=== PATIENT | male | born 1935 | race Caucasian/White ===

== ENCOUNTER 2018-01-13 21:12 | Emergency (ER) | payer MEDICARE ==
[2018-01-13] MEDS ORDERED: NA CHLORIDE 0.9% 1,000 ML ONE ×2 (21:54→23:12)
--- NOTE | 2018-01-13 22:14 | RAD REPORT ---
EXAM DESCRIPTION: CT - CTHCSPWOC - 01/13/2018 9:55 pm CLINICAL HISTORY: Fall, head and neck injury COMPARISON: None. TECHNIQUE: Axial 5 mm thick images of the head were obtained. Axial 2 mm thick images of the cervic al spine were obtained with sagittal and coronal reconstruction images generated and reviewed. All CT scans are performed using dose optimization technique as appropriate and may include automated exposure control or mA/KV adjustment according to patient size. FINDINGS: No intracranial hemorrhage, mass, edema or acute intracranial finding. No suspicion for acute infarct ion. Moderate severity atrophy chronic ischemic changes. Ventricular size is in proportion to volume loss. Mastoid air cells and paranasal sinuses are clear. No globe or orbit abnormality seen. Cervical body height and alignment are normal. No disk space narrowing. No fracture or acute bony abn ormality. No pathologic bone process. Facet joint degenerative changes are present most prominent at C5-6 and C4-5. No paraspinal mass or hematoma. IMPRESSION: Moderate severity atrophy and chronic ischemic change with no acute finding. Multilevel facet joint degenerative change. No fracture or acute cervical spine finding.
--- NOTE | 2018-01-13 22:27 | RAD REPORT ---
EXAM DESCRIPTION: RAD - Chest Single View - 01/13/2018 10:05 pm CLINICAL HISTORY: Fall, syncope, chest pain COMPARISON: None. TECHNIQUE: AP portable chest image was obtained 2153 hours . FINDINGS: No pulmonary contusion, mass or acute lung parenchymal process. No failure or volume overl oad. Pacemaker is in place. Heart and vasculature are normal. No measurable pleural effusion and no p neumothorax. No acute aortic finding. Large hiatal hernia is evident. IMPRESSION: No acute cardiopulmonary process. Large hiatal hernia.
[2018-01-13 22:36] LABS: Absolute Lymphocytes (CBC) 1.4 K/uL (0.7-4.9); Absolute Monocytes 0.6 K/uL (0.1-1.3); Absolute Neutrophil 3.8 K/uL (1.8-8.0); Basophils % 0.7 % (0-1.3); Eosinophils % 2.1 % (0-4.4); Hematocrit 36.1 % (39.6-49.0); MCH 32.8 pg (27.0-35.0); MCV 94.2 fL (80-100); MPV 8.9 fL (7.6-11.3); Monocytes % 10.2 % (3.3-12.3); RBC Red Blood Cell Count 3.83 M/uL (4.33-5.43)
[2018-01-13 22:37] LABS: Protime INR 1.08
[2018-01-13 23:07] LABS: Magnesium 2.2 mg/dL (1.8-2.4); Potassium 3.8 mmol/L (3.5-5.1)
[2018-01-13] MEDS ORDERED: INSULIN -REGULAR HUMAN 50 UNIT/0.5 ML ML ONE (23:12)
--- NOTE | 2018-01-13 23:12 | EDPHYS ---
Physician Documentation [facility] Name: Rafael Stone Age: 82 yrs Sex: Male : 1935 Arrival Date: 01/13/2018 Time: 21:13 Bed 7 Private MD: ED Physician Jaleel Hutton HPI: 01/13 22:07 This 82 yrs old Male presents to ER via EMS with complaints of Fall. jr8 22:07 The patient or guardian reports pain, tenderness. The complaints affect the forehead. jr8 Context of injury: The problem was sustained at home, resulted from a fall. Onset: The symptoms/episode began/occurred acutely, today. Associated signs and symptoms: The patient has no apparent associated signs or symptoms. Severity of symptoms: At their worst the symptoms were mild, in the emergency department the symptoms are unchanged. The patient has experienced similar episodes in the past, a few times. The patient has not recently seen a physician. Family stated that he has had frequent falls. Patient stated that some of them have been from miss stepping or accidental. The one tonight he did not remember. Complains of head and ear pain. Denies any CP, shortness of breath, fevers, fatigue, weakness, dizziness, or visual disturbances . Historical: - Allergies: 21:18 No Known Allergies; bp - Home Meds: 21:20 aspirin 81 mg Oral TbEC 1 tab once daily [Active]; Zetia 10 mg Oral tab 1 tab once bp daily [Active]; glipizide 5 mg Oral tab 1 tab once daily [Active]; lisinopril 10 mg Oral tab 1 tab once daily [Active]; omeprazole 40 mg Oral cpDR 1 cap once daily [Active]; sertraline 50 mg oral tab 1 tab once daily [Active]; atorvastatin 80 mg oral tab 1 tab once daily [Active]; - PMHx: 21:18 Cancer; Hypertension; Diabetes - NIDDM; High Cholesterol; Depression; bp - PSHx: 21:18 PACEMAKER; bp - Immunization history:: Adult Immunizations up to date. - Social history:: Smoking status: Patient/guardian denies using tobacco, Patient uses alcohol, occasionally. - Ebola Screening: : Patient negative for fever greater than or equal to 101.5 degrees Fahrenheit, and additional compatible Ebola Virus Disease symptoms Patient denies exposure to infectious person Patient denies travel to an Ebola-affected area in the 21 days before illness onset No symptoms or risks identified at this time. ROS: 22:07 Eyes: Negative for injury, pain, redness, and discharge, ENT: Negative for injury, jr8 pain, and discharge, Neck: Negative for injury, pain, and swelling, Cardiovascular: Negative for chest pain, palpitations, and edema, Respiratory: Negative for shortness of breath, cough, wheezing, and pleuritic chest pain, Abdomen/GI: Negative for abdominal pain, nausea, vomiting, diarrhea, and constipation, Back: Negative for injury and pain, MS/Extremity: Negative for injury and deformity, Neuro: Negative for headache, weakness, numbness, tingling, and seizure. 22:07 Skin: Positive for abrasion(s), laceration(s), of the face and left ear. Exam: 22:07 Eyes: Pupils equal round and reactive to light, extra-ocular motions intact. Lids and jr8 lashes normal. Conjunctiva and sclera are non-icteric and not injected. Cornea within normal limits. Periorbital areas with no swelling, redness, or edema. ENT: Nares patent. No nasal discharge, no septal abnormalities noted. Tympanic membranes are normal and external auditory canals are clear. Oropharynx with no redness, swelling, or masses, exudates, or evidence of obstruction, uvula midline. Mucous membranes moist. Neck: Trachea midline, no thyromegaly or masses palpated, and no cervical lymphadenopathy. Supple, full range of motion without nuchal rigidity, or vertebral point tenderness. No Meningismus. Chest/axilla: Normal chest wall appearance and motion. Nontender with no deformity. No lesions are appreciated. Cardiovascular: Regular rate and rhythm with a normal S1 and S2. No gallops, murmurs, or rubs. Normal PMI, no JVD. No pulse deficits. Respiratory: Lungs have equal breath sounds bilaterally, clear to auscultation and percussion. No rales, rhonchi or wheezes noted. No increased work of breathing, no retractions or nasal flaring. Abdomen/GI: Soft, non-tender, with normal bowel sounds. No distension or tympany. No guarding or rebound. No evidence of tenderness throughout. Back: No spinal tenderness. No costovertebral tenderness. Full range of motion. Skin: Warm, dry with normal turgor. Normal color with no rashes, no lesions, and no evidence of cellulitis. MS/ Extremity: Pulses equal, no cyanosis. Neurovascular intact. Full, normal range of motion. Neuro: Awake and alert, GCS 15, oriented to person, place, time, and situation. Cranial nerves II-XII grossly intact. Motor strength 5/5 in all extremities. Sensory grossly intact. Cerebellar exam normal. Normal gait. 22:07 Head/face: Noted is Mild superficial tear to left ear with mild bleeding. Small abrasion to forehead . Vital Signs: 21:20 BP 118 / 59; Pulse 64; Resp 13; Temp 98; Pulse Ox 94% ; Weight 86.18 kg; bp 22:32 BP 113 / 63 Supine; Pulse 64; mt 22:32 BP 100 / 55 Sitting; Pulse 65; mt 22:32 BP 97 / 52 Standing; Pulse 68; mt 22:32 BP 97 / 52; Pulse 68; Resp 14; Pulse Ox 95% ; bp 23:34 BP 129 / 70; Pulse 69; Resp 16; Pulse Ox 93% on R/A; mt [place] Coma Score: 22:07 Eye Response: spontaneous(4). Verbal Response: oriented(5). Motor Response: obeys jr8 commands(6). Total: 15. MDM: 21:21 Patient medically screened. jr8 23:10 Data reviewed: vital signs, nurses notes, lab test result(s), EKG, radiologic studies, jr8 CT scan, plain films, and as a result, I will discharge patient. Data interpreted: Pulse oximetry: on room air is 95 %. Interpretation: normal. Counseling: I had a detailed discussion with the patient and/or guardian regarding: the historical points, exam findings, and any diagnostic results supporting the discharge/admit diagnosis, lab results, radiology results, the need for outpatient follow up, a family practitioner, to return to the emergency department if symptoms worsen or persist or if there are any questions or concerns that arise at home. Response to treatment: the patient's symptoms have markedly improved after treatment, patient is well hydrated. 01/13 21:42 Order name: Basic Metabolic Panel; Complete Time: 23:10 jr8 01/13 21:42 Order name: CBC with Diff; Complete Time: 22:58 jr8 01/13 21:42 Order name: Magnesium; Complete Time: 23:10 jr8 /31 21:42 Order name: NT PRO-BNP; Complete Time: 23:10 01/13 21:42 Order name: PT-INR; Complete Time: 22:58 01/13 23:04 Order name: Urine Dipstick--Ancillary (enter results) mw2 01/13 21:32 Order name: CT Head C Spine; Complete Time: 22:15 01/13 21:42 Order name: XRAY Chest (1 view); Complete Time: 22:29 01/13 21:42 Order name: EKG; Complete Time: 21:42 01/13 21:42 Order name: Cardiac monitoring; Complete Time: 22:24 01/13 21:42 Order name: EKG - Nurse/Tech; Complete Time: 22:24 01/13 21:42 Order name: IV Saline Lock; Complete Time: 22:24 01/13 23:04 Order name: Urine Dipstick-Ancillary EDMT 01/13 21:42 Order name: Labs collected and sent; Complete Time: 22:24 01/13 21:42 Order name: O2 Per Protocol; Complete Time: 22:24 01/13 21:42 Order name: O2 Sat Monitoring; Complete Time: 22:24 01/13 21:42 Order name: Urine Dipstick-Ancillary (obtain specimen); Complete Time: 23:03 01/13 21:42 Order name: Orthostatics; Complete Time: 22:31 Administered Medications: 22:31 Drug: NS 0.9% 1000 ml Route: IV; Rate: 1000 ml; Site: right forearm; bp 01/14 00:00 Follow up: IV Status: Completed infusion; IV Intake: 1000ml bp Disposition: 01/13/18 23:11 Discharged to Home. Impression: Superficial injury of head, Dehydration. - Condition is Stable. - Discharge Instructions: Dehydration, Elderly, Head Injury, Adult. - Medication Reconciliation Form, Thank You Letter, Antibiotic Education, Prescription Opioid Use form. - Follow up: Private Physician; When: 5 - 6 days; Reason: Recheck today's complaints, Continuance of care, Re-evaluation by your physician. - Problem is new. - Symptoms have improved. Addendum: 01/15/2018 04:20 Co-signature as Attending Physician, Jaleel Hutton MD I agree with the assessment and p s1 plan of care. Signatures: Dispatcher [employer] EDKrunal Franco PA PA jr8 Carlos Hogue, BUZZ RN Jaleel Cadena MD MD ps1 Corrections: (The following items were deleted from the chart) 01/14 00:04 01/13 23:11 01/13/2018 23:11 Discharged to Home. Impression: Superficial injury of bp head; Dehydration. Condition is Stable. Forms are Medication Reconciliation Form, Thank You Letter, Antibiotic Education, Prescription Opioid Use. Follow up: Private Physician; When: 5 - 6 days; Reason: Recheck today's complaints, Continuance of care, Re-evaluation by your physician. Problem is new. Symptoms have improved. jr8
--- NOTE | 2018-01-13 23:12 | ER ---
Nurse's Notes [facility] Name: Rafael Stone Age: 82 yrs Sex: Male : 1935 Arrival Date: 01/13/2018 Time: 21:13 Bed 7 Private MD: Diagnosis: Superficial injury of head;Dehydration Presentation: 01/13 21:15 Presenting complaint: EMS states: HE HAD A FALL AT ABOUT 1920. Transition of care: bp patient was not received from another setting of care. Onset of symptoms was January 13, 2018 at 19:20. Risk Assessment: Do you want to hurt yourself or someone else? Patient reports no desire to harm self or others. Initial Sepsis Screen: Does the patient meet any 2 criteria? No. Patient's initial sepsis screen is negative. Does the patient have a suspected source of infection? No. Patient's initial sepsis screen is negative. Care prior to arrival: Glucose check: 220. 21:15 Method Of Arrival: EMS: [facility] bp 21:15 Acuity: SILVINO 3 bp Triage Assessment: 21:20 General: Appears in no apparent distress. comfortable, Behavior is calm, cooperative, bp appropriate for age. Pain: Complains of pain in head. Injury Description: Bruise sustained to head Laceration sustained to left ear. Historical: - Allergies: 21:18 No Known Allergies; bp - Home Meds: 21:20 aspirin 81 mg Oral TbEC 1 tab once daily [Active]; Zetia 10 mg Oral tab 1 tab once bp daily [Active]; glipizide 5 mg Oral tab 1 tab once daily [Active]; lisinopril 10 mg Oral tab 1 tab once daily [Active]; omeprazole 40 mg Oral cpDR 1 cap once daily [Active]; sertraline 50 mg oral tab 1 tab once daily [Active]; atorvastatin 80 mg oral tab 1 tab once daily [Active]; - PMHx: 21:18 Cancer; Hypertension; Diabetes - NIDDM; High Cholesterol; Depression; bp - PSHx: 21:18 PACEMAKER; bp - Immunization history:: Adult Immunizations up to date. - Social history:: Smoking status: Patient/guardian denies using tobacco, Patient uses alcohol, occasionally. - Ebola Screening: : Patient negative for fever greater than or equal to 101.5 degrees Fahrenheit, and additional compatible Ebola Virus Disease symptoms Patient denies exposure to infectious person Patient denies travel to an Ebola-affected area in the 21 days before illness onset No symptoms or risks identified at this time. Screenin:24 Abuse screen: Denies threats or abuse. Denies injuries from another. Nutritional bp screening: No deficits noted. Tuberculosis screening: No symptoms or risk factors identified. Fall Risk Fall in past 12 months (25 points). No secondary diagnosis (0 pts). IV access (20 points). Ambulatory Aid- None/Bed Rest/Nurse Assist (0 pts). Gait- Normal/Bed Rest/Wheelchair (0 pts) Mental Status- Oriented to own ability (0 pts). Total Roberson Fall Scale indicates High Risk Score (45 or more points). Fall prevention measures have been instituted. Side Rails Up X 2 Placed Close to Nursing Station Frequent Obs/Assessments Occuring Family Present and informed to notify staff if the need to leave the bedside As available patient and family educated on Fall Prevention Program and Strategies. Assessment: 21:23 General: SEE TRIAGE NOTE. bp 21:47 Reassessment: PT TO CT WITH PLATE MILL HAND. bp 23:36 Reassessment: D/C ON HOLD FOR IVF INFUSION. bp 01/14 00:03 Reassessment: PT D/C HOME AMBULATORY WITH FAMILY, DX WITH DEHYDRATION. bp Vital Signs: 01/13 21:20 BP 118 / 59; Pulse 64; Resp 13; Temp 98; Pulse Ox 94% ; Weight 86.18 kg; bp 22:32 BP 113 / 63 Supine; Pulse 64; mt 22:32 BP 100 / 55 Sitting; Pulse 65; mt 22:32 BP 97 / 52 Standing; Pulse 68; mt 22:32 BP 97 / 52; Pulse 68; Resp 14; Pulse Ox 95% ; bp 23:34 BP 129 / 70; Pulse 69; Resp 16; Pulse Ox 93% on R/A; mt [place] Coma Score: 22:07 Eye Response: spontaneous(4). Verbal Response: oriented(5). Motor Response: obeys jr8 commands(6). Total: 15. ED Course: 21:13 Patient arrived in ED. ds1 21:15 Carlos Hogue, BUZZ is Primary Nurse. bp 21:16 Triage completed. bp 21:20 Arm band placed on. bp 21:21 Krunal Emanuel PA is PHCP. jr8 21:21 Jaleel Hutton MD is Attending Physician. jr8 21:25 Patient has correct armband on for positive identification. Bed in low position. Call bp light in reach. Side rails up X2. Adult w/ patient. 21:[address] la 21:56 CT Head C Spine In Process Unspecified. EDMS 22:01 CT completed. Patient tolerated procedure well. Patient moved to radiology. la 22:03 X-ray completed. Patient tolerated procedure well. 22:03 XRAY Chest (1 view) In Process Unspecified. EDMS 22:31 Inserted saline lock: 22 gauge in right forearm, using aseptic technique. Blood bp collected. 08 00:04 No provider procedures requiring assistance completed. IV discontinued, intact, bp bleeding controlled, No redness/swelling at site. Pressure dressing applied. Administered Medications: 01/13 22:31 Drug: NS 0.9% 1000 ml Route: IV; Rate: 1000 ml; Site: right forearm; bp 08 00:00 Follow up: IV Status: Completed infusion; IV Intake: 1000ml bp Intake: 00:00 IV: 1000ml; Total: 1000ml. bp Outcome: 01/13 23:11 Discharge ordered by . jr8 08/ 00:04 Discharged to home ambulatory, with family. bp Condition: stable Discharge instructions given to patient, family, Instructed on discharge instructions, follow up and referral plans. Demonstrated understanding of instructions, follow-up care. 00:04 Patient left the ED. bp Signatures: Dispatcher [employer] EDPA Denise Dobbins1 Shelly Jaiems Josh, PA PA jr8 Tarun Valdovinos [place] mt [place], Brian, BUZZ RN bp
[2018-01-14 00:12] LABS: Urine Blood NEGATIVE (NEG); Urine Glucose 1+ (NEG); Urine Protein NEGATIVE (NEG); Urine pH 5.5 (5.0-7.0)
--- NOTE | 2018-01-14 14:37 | EKG ---
Test Date: 2018-01-13 Test Time: 22:12:15 Block And Case Maker: JENNIFER MEASUREMENT RESULTS: Intervals: Rate: 61 [place]: 170 QRSD: 94 QT: 452 QTc: 455 [place]: P: 19 [place]: 170 QRS: 32 T: 61 INTERPRETIVE STATEMENTS: Normal sinus rhythm Normal ECG No previous ECG available for comparison Electronically Signed On 01-14-18 14:35:40 CDT by Alexandr Black
== END 2018-01-14 00:04 | disposition home or self-care (01) ==
LOC: ER 21:12
DX: S00.90XA Unspecified superficial injury of unspecified part of head, initial encounter (principal); E86.0 Dehydration; W19.XXXA Unspecified fall, initial encounter; Y93.9 Activity, unspecified; Y92.009 Unspecified place in unspecified non-institutional (private) residence as the place of occurrence of the external cause; Z95.0 Presence of cardiac pacemaker; Z79.82 Long term (current) use of aspirin; I10 Essential (primary) hypertension; E11.9 Type 2 diabetes mellitus without complications; E78.00 Pure hypercholesterolemia, unspecified; F32.9 Major depressive disorder, single episode, unspecified
CPT/HCPCS: 36415; 70450; 71045; 72125; 80048; 81003; 83735; 83880; 85025; 85610; 93005; J7030 ×2; 96360; 99284